=== PATIENT | female | born 1980 | race Hispanic/Latino ===

== ENCOUNTER 2017-07-05 05:49 | Inpatient (IN) | payer OTHER ==
[~2017-07-05] VITALS: Ht 160 cm; Wt 93.0 kg
--- NOTE | ~2017-07-05 | OR ---
PATIENT'S NAME: RIANNA HUTCHINS I [facility] AGE: 37 Y [address] ROOM: [place] [address] LOCATION: [facility] ADMIT DATE: 07/05/2017 OR/Procedure Report DISCHARGE DATE: FAMILY PHYSICIAN: PHYSICIAN, NO ATTENDING PHYSICIAN: Bia Vieyra SURGEON: Bia Vieyra MD REFERRAL MANAGEMENT LIAISON: Laura Kwok MD. Dr. Kwok's assistance was required due to the complexity of the case as well as in compliance with [facility] guidelines. Bulldozer Operator is also ASHELY Xiao. DATE OF PROCEDURE: 07/05/2017 PREOPERATIVE DIAGNOSES: Prior section at term and gestational diabetes. POSTOPERATIVE DIAGNOSE: Prior section at term and gestational diabetes. PROCEDURE: Repeat low transverse section. ANESTHESIA: Initially spinal, but completed under general. ESTIMATED BLOOD LOSS: 500 mL. CLINICAL CONDITION: Rianna Hutchins is a 37-year-old female with two prior sections, necessitating a repeat section. She also has gestational diabetes. FINDINGS: Delivery of viable 9 pounds 6 ounces female infant, score 8 at 1 minute, 9 at 5 minutes. umbilical arterial cord blood gas is pending at the time of dictation. TECHNIQUE OF PROCEDURE: The patient was taken to the operating room, given spinal anesthesia with good results, prepped and draped in the usual fashion. Spinal anesthesia was insufficient for surgery and she was put to sleep. She was then given general anesthesia. The fascial incision was made with a scalpel. Subcutaneous tissue was dissected sharply. Fascial incision was performed sharply. Linea alba dissected free of the rectus muscles. Abdominal rectus muscles and peritoneum were incised vertically in the midline. Bladder flap created. Myometrium incised with a scalpel. Endometrial cavity was entered bluntly. Uterine incision was performed bluntly. At this point in time, there was a rapid and easy delivery of a viable 9 pounds 6 ounces female in a vertex presentation. The umbilical cord was doubly clamped, the intervening segments cut. was handed off to the awaiting nursing services. umbilical arterial cord PATIENT'S NAME: RIANNA HUTCHINS I [facility] AGE: 37 Y [address] ROOM: [place] [address] LOCATION: [facility] ADMIT DATE: 07/05/2017 OR/Procedure Report DISCHARGE DATE: FAMILY PHYSICIAN: PHYSICIAN, NO ATTENDING PHYSICIAN: Bia Vieyra blood and venous cord blood were obtained for blood gas analysis for routine studies respectively. Placenta delivered spontaneously intact with 3 vessels. Exploration of the uterine cavity noted with no residual placental or amniotic membranes. Uterine incision was closed with running continually locking stitch of 0 chromic suture followed by a second imbricating layer consisting of running continuous stitch of 0 chromic suture. Good hemostasis was obtained. Bladder flap was closed with a running continuous stitch of 2-0 Vicryl suture. Abdomen was inspected. Any blood or blood clots were retrieved. Tubes and ovaries were normal bilaterally. Abdominal peritoneum was closed with running continuous stitch of 2-0 Vicryl suture. Fascial incision was closed with 2 running continuous stitches of 0 Vicryl suture tied in the midline. Subcutaneous tissue was reapproximated using running continuous stitch of 2-0 Vicryl suture. The old scar was excised sharply. Skin was closed with running continuous subcuticular stitch of 4-0 Vicryl suture. Sponge, needle, and instrument counts were correct. The patient tolerated the procedure well and was taken to the recovery room in good condition. BIA VIEYRA MD DHW/modl /[id number] d: t: 07/05/17 1215, OPERATIVE SUMMARY
[~2017-07-05 05:49] MED LIST: ACETAMINOPHEN325 MG PO; COLACE100 MG PO; MOTRIN800 MG PO; PERCOCET 5-3251 EACH PO; PRENATAL 1+1)(P1 TAB PO; ROBITUSSIN DM U10 ML
[2017-07-05 06:47] LABS: BASOPHIL # 0.1 K/uL (0.0-0.2); BASOPHIL % 0.4 %; EOSINOPHIL # 0.3 K/uL (0.0-0.5); EOSINOPHIL % 2.3 %; HEMATOCRIT 35.9 % (33.0-46.0); HEMOGLOBIN 11.8 g/dL (11.0-15.0); IMMATURE GRANULOCYTE # 0.3 K/uL (0.0-0.3); IMMATURE GRANULOCYTE % 1.9 %; LYMPHOCYTE # 2.6 K/uL (0.8-4.0); LYMPHOCYTE % 19.6 %; MCH 26.5 pg (27.0-34.0); MCHC 32.9 gm/dL (32.0-36.5); MCV 80.5 fl (83.0-98.0); MONOCYTE # 1.2 K/uL (0.0-1.0); MONOCYTE % 8.9 %; MPV 9.3 fl (9.4-12.4); NEUTROPHIL # (ANC) 8.7 K/uL (1.8-7.8); NEUTROPHIL % 66.9 %; NRBC % 0 /100WBC (0-0.00); PLATELET COUNT 300 K/uL (150-450); RDW-CV 14.9 % (11.9-14.6)
[2017-07-05 06:51] LABS: RBC 4.46 M/uL (3.50-5.50)
[2017-07-05 08:33] LABS: BICARBONATE 26.3 mmol/L (18.0-23.0); PCO2 59 mmHg (35-45); PO2 27 mmHg (80-90)
[2017-07-06 04:47] LABS: BASOPHIL % 0.1 %; EOSINOPHIL # 0.2 K/uL (0.0-0.5); EOSINOPHIL % 1.6 %; HEMATOCRIT 29.6 % (33.0-46.0); HEMOGLOBIN 9.5 g/dL (11.0-15.0); IMMATURE GRANULOCYTE # 0.2 K/uL (0.0-0.3); IMMATURE GRANULOCYTE % 1.1 %; LYMPHOCYTE # 1.5 K/uL (0.8-4.0); LYMPHOCYTE % 10.6 %; MCH 26.4 pg (27.0-34.0); MCHC 32.1 gm/dL (32.0-36.5); MCV 82.2 fl (83.0-98.0); MONOCYTE # 1.3 K/uL (0.0-1.0); MONOCYTE % 9.3 %; MPV 8.8 fl (9.4-12.4); NEUTROPHIL # (ANC) 11.1 K/uL (1.8-7.8); NEUTROPHIL % 77.3 %; NRBC % 0 /100WBC (0-0.00); RDW-CV 15.1 % (11.9-14.6); WBC 14.3 K/uL (4.0-11.0)
[2017-07-06 04:50] LABS: PLATELET COUNT 232 K/uL (150-450)
[2017-07-08] MEDS ORDERED: MOTRIN800 MG PO ×2 (10:16)
[2017-07-08] MEDS ORDERED: PERCOCET 5-3251 EACH PO (10:17)
[2017-07-08 15:25] LABS: BILIRUBIN URINE NEGATIVE (NEGATIVE); BLOOD URINE 250 /UL (NEGATIVE); COLOR URINE YELLOW (YELLOW); GLUCOSE URINE NEGATIVE (NEGATIVE); KETONE URINE NEGATIVE (NEGATIVE); LEUKOCYTES URINE 500 /UL (NEGATIVE); NITRITE URINE NEGATIVE (NEGATIVE); PROTEIN URINE 15 mg/dL (NEGATIVE); SPEC GRAVITY URINE 1.015 (1.003-1.035); TURBIDITY URINE 1+ (CLEAR); UROBILINOGEN URINE NORMAL (NORMAL)
[2017-07-08 15:38] LABS: BACTERIA URINE FEW (NEGATIVE)
[2017-07-08 15:39] LABS: RBC URINE 50-100 #/HPF (NEGATIVE); WBC URINE 20-50 #/HPF (NEGATIVE)
[2017-07-08 15:40] LABS: WBC CLUMPS URINE FEW (NEGATIVE)
[2017-07-08] MEDS ORDERED: KEFLEX500 MG PO (18:02)
== END 2017-07-08 21:10 | disposition disaster alternative care site (69) | DRG 766 ==
LOC: GOBS 05:49
PROVIDERS: ADMIT Obstetrics & Gynecology
PROC: 10D00Z1 Extraction of Products of Conception, Low, Open Approach (ICD-10-PCS; principal; 2017-07-05)
PROC: 6A550ZT Pheresis of Cord Blood Stem Cells, Single (ICD-10-PCS; principal; 2017-07-05)
DX: O34.219 Maternal care for unspecified type scar from previous cesarean delivery (principal); O24.429 Gestational diabetes mellitus in childbirth, unspecified control; Z3A.37 37 weeks gestation of pregnancy; Z37.0 Single live birth
CPT/HCPCS: J0295; J1885; J2001; J2270; J2590; J3010; J7120